=== PATIENT | male | born 1940 | race Two or more races ===

== ENCOUNTER 2020-12-02 15:47 | Inpatient (IN) | payer OTHER ==
[~2020-12-02] VITALS: Ht 180.3 cm; Wt 75.3 kg
[2020-12-02 16:26] LABS: Basophils # (auto) 0 10 ^3/uL (0-0.2); Basophils % (auto) 0.5 % (0.0-2.0); Eosinophils # (auto) 0 10 ^3/uL (0-0.8); Eosinophils % (auto) 0.5 % (0.0-7.0); Hemoglobin 9.5 g/dL (13.5-17.5); Lymphocytes # (auto) 0.8 10 ^3/uL (0.4-5.4); Mean Corpuscular Hemoglobin 22.3 pg (28.0-32.0); Monocytes # (auto) 0.3 10 ^3/uL (0-1.3); Nucleated Red Blood Cells % 0.1 %; Red Blood Cells 4.25 10^6/uL (4.5-5.90)
[2020-12-02 16:27] LABS: Hematocrit 30.3 % (41.0-53.0); Mean Corpuscular Hgb Conc. 31.3 g/dL (32.0-36.0); Mean Corpuscular Volume 71.1 fL (80.0-100.0); Monocytes % (auto) 7.8 % (0.0-12.0); Neutrophils # (auto) 2.3 10 ^3/uL (1.6-8.6); Neutrophils % (auto) 68.2 % (37.0-80.0); Red Cell Distribution Width 16.3 % (11.8-14.3); White Blood Cell 3.4 10^3/uL (4.4-10.8)
[2020-12-02 16:40] LABS: INR 1.04 (0.9-1.15); Partial Thromboplastin Time 26.8 sec (23.6-33.0)
[2020-12-02 16:48] LABS: Albumin 2.6 g/dL (3.4-5.0); Calcium 8.1 mg/dL (8.5-10.1); Potassium 3.9 mmol/L (3.5-5.1)
[2020-12-02 16:53] LABS: Bilirubin, Total 0.6 mg/dL (0.2-1.0); Total Protein 6.6 g/dL (6.4-8.2)
[2020-12-02] MEDS ORDERED: cefTRIAXone 1GM/50ML D5W 50 ML IV ONE ×2 (17:15→20:00)
[2020-12-02] MEDS ORDERED: LACTATED RINGER'S 1,000 ML IV ONE (18:15)
[2020-12-02] MEDS ORDERED: NITROGLYCERIN 0.4 MG SL TAB SL PRN ×2 (18:15→20:00)
[2020-12-02] MEDS ORDERED: DEXTROSE (50%) 50ML SYRG IV PRN (18:15)
[2020-12-02] MEDS ORDERED: hydrALAZINE HCL 20 MG/ML VL IV PRN (18:15)
[2020-12-02] MEDS ORDERED: FUROSEMIDE 100 MG/10ML VIAL IV ONE (18:15)
[2020-12-02] MEDS ORDERED: ISOSORBIDE MONONITRATE ER 60 MG TAB PO ONE ×2 (18:15→20:00)
[2020-12-02] MEDS ORDERED: MORPHINE SULFATE INJECTION 2 MG/ML SYRG IV PRN ×3 (18:15→20:00)
[2020-12-02] MEDS ORDERED: hydrALAZINE HCL 20 MG/ML VL IV ONE (18:30)
[2020-12-02] MEDS ORDERED: ALPR0.5T7 PO (18:46)
[2020-12-02] MEDS ORDERED: HYDR50TA15 PO (18:46)
[2020-12-02] MEDS ORDERED: REPA2TAB8 PO (18:46)
[2020-12-02] MEDS ORDERED: TEMA7.5C11 PO (18:46)
[2020-12-02] MEDS ORDERED: CHOL500023 PO (18:46)
[2020-12-02] MEDS ORDERED: METO-289 PO (18:46)
[2020-12-02] MEDS ORDERED: ALBUAER3 IN (18:46)
[2020-12-02] MEDS ORDERED: DOCUSATE SOD 100 MG CAP PO PRN (20:00)
[2020-12-02] MEDS ORDERED: IPRATROPIUM BROM 0.5 MG/2.5ML INH SOL NEB ONE (20:00)
[2020-12-02] MEDS ORDERED: METOPROLOL SUCCINATE XL 50 MG TAB PO ONE (20:00)
[2020-12-02] MEDS ORDERED: HYDROcodone-ACET 5/325MG TAB PO PRN (20:00)
[2020-12-02] MEDS ORDERED: LORazepam 0.5 MG TAB PO PRN (20:00)
[2020-12-02] MEDS ORDERED: ATORVASTATIN 20 MG TAB PO ONE (20:00)
[2020-12-02] MEDS ORDERED: AZITHROMYCIN 500MG/ 250ML 250 ML IV ONE (20:00)
[2020-12-02] MEDS ORDERED: METOCLOPRAMIDE HCL 5MG/ml INJ 2ml VIAL IV PRN ×2 (20:00→21:00)
[2020-12-02] MEDS ORDERED: ACETAMINOPHEN 325 MG TAB PO PRN (20:00)
[2020-12-02] MEDS ORDERED: ALUM & MAG HYDROX-SIMETH LIQ(MAALOX) 30 ML PO PRN (20:00)
[2020-12-02] MEDS ORDERED: LORazepam 2MG/ML-1ML VIAL IV ONE (20:15)
[2020-12-02] MEDS ORDERED: IPRATROPIUM BROM 0.5 MG/2.5ML INH SOL NEB SCH (20:20)
[2020-12-02] MEDS: SODIUM CHLOR 0.9% PF (SALINE LOCK) 10ML VIAL/SYR IV SCH (21:27)
[2020-12-02] MEDS ORDERED: TEMAZEPAM 15 MG CAP PO ONE (22:00)
[2020-12-02] MEDS ORDERED: ATORVASTATIN 20 MG TAB PO SCH (22:00)
[2020-12-03 00:03] VITALS: BP 97/53
[2020-12-03] MEDS ORDERED: InsuLIN REG 1unit/0.01ml Soln (100units/ml) ONE (00:17)
[2020-12-03] MEDS ORDERED: ACETAMINOPHEN 325 MG TAB PO PRN (00:30)
[2020-12-03] MEDS ORDERED: DEXTROSE (50%) 50ML SYRG IV PRN ×3 (00:30→06:15)
[2020-12-03] MEDS ORDERED: ALUM & MAG HYDROX-SIMETH LIQ(MAALOX) 30 ML PO PRN (00:30)
[2020-12-03] MEDS ORDERED: hydrALAZINE HCL 20 MG/ML VL IV PRN (01:45)
[2020-12-03] MEDS ORDERED: DOCUSATE SOD 100 MG CAP PO PRN (01:45)
[2020-12-03] MEDS ORDERED: MORPHINE SULFATE INJECTION 2 MG/ML SYRG IV PRN (01:45)
[2020-12-03] MEDS ORDERED: NITROGLYCERIN 0.4 MG SL TAB SL PRN (01:45)
[2020-12-03] MEDS ORDERED: IPRATROPIUM BROM 0.5 MG/2.5ML INH SOL ONE (02:20)
[2020-12-03] MEDS: InsuLIN REG 1unit/0.01ml Soln (100units/ml) SC SCH ×4 (05:52→18:39)
[2020-12-03] MEDS: IPRATROPIUM BROM 0.5 MG/2.5ML INH SOL NEB SCH ×5 (06:00→22:55)
[2020-12-03] MEDS ORDERED: ACCU-CHEK COMFORT CURVE STRIP VI SCH ×2 (06:00)
[2020-12-03] MEDS: SODIUM CHLOR 0.9% PF (SALINE LOCK) 10ML VIAL/SYR IV SCH ×3 (06:00→22:04)
[2020-12-03] MEDS ORDERED: FUROSEMIDE 40 MG/4 ML VIAL IV SCH (06:00)
[2020-12-03] MEDS: cefTRIAXone 1GM/50ML D5W 50 ML IV SCH (09:00)
[2020-12-03] MEDS: METOPROLOL SUCCINATE XL 50 MG TAB PO SCH (10:00)
[2020-12-03] MEDS: AZITHROMYCIN 500MG/ 250ML 250 ML IV SCH (10:00)
[2020-12-03] MEDS: ISOSORBIDE MONONITRATE ER 60 MG TAB PO SCH ×2 (10:31→17:56)
[2020-12-03] MEDS: ACCU-CHEK COMFORT CURVE STRIP VI SCH ×2 (12:27→17:35)
[2020-12-03] MEDS ORDERED: D5W 5% 1,000 ML IV SCH (12:30)
[2020-12-03] MEDS ORDERED: SODIUM CHL 0.9% 1000 ML BAG XX ONE (13:15)
[2020-12-03 13:43] LABS: BUN/Creatinine Ratio 8.4; Calcium 8.3 mg/dL (8.5-10.1); Potassium 3.8 mmol/L (3.5-5.1)
[2020-12-03 20:13] VITALS: BP 142/67
[2020-12-03] MEDS: ATORVASTATIN 20 MG TAB PO SCH (21:55)
[2020-12-03] MEDS: LORazepam 0.5 MG TAB PO PRN (21:55)
[2020-12-03 22:00] VITALS: BP 142/67
[2020-12-04] MEDS: ACCU-CHEK COMFORT CURVE STRIP VI SCH ×5 (00:34→23:49)
[2020-12-04] MEDS: InsuLIN REG 1unit/0.01ml Soln (100units/ml) SC SCH ×5 (00:38→23:50)
[2020-12-04] MEDS: IPRATROPIUM BROM 0.5 MG/2.5ML INH SOL NEB SCH ×5 (02:37→22:25)
[2020-12-04 05:00] VITALS: BP 153/67
[2020-12-04] MEDS: SODIUM CHLOR 0.9% PF (SALINE LOCK) 10ML VIAL/SYR IV SCH ×3 (05:14→21:00)
[2020-12-04 06:16] LABS: Basophils # (auto) 0 10 ^3/uL (0-0.2); Hematocrit 24.5 % (41.0-53.0); Hemoglobin 8.2 g/dL (13.5-17.5); Lymphocytes # (auto) 1.3 10 ^3/uL (0.4-5.4); Monocytes # (auto) 0.3 10 ^3/uL (0-1.3); Nucleated Red Blood Cells % 0.1 %; White Blood Cell 4.2 10^3/uL (4.4-10.8)
[2020-12-04 06:19] LABS: Basophils % (auto) 1.1 % (0.0-2.0); Eosinophils # (auto) 0.2 10 ^3/uL (0-0.8); Eosinophils % (auto) 5.8 % (0.0-7.0); Mean Corpuscular Hemoglobin 23.5 pg (28.0-32.0); Mean Corpuscular Hgb Conc. 33.3 g/dL (32.0-36.0); Mean Corpuscular Volume 70.6 fL (80.0-100.0); Monocytes % (auto) 8.3 % (0.0-12.0); Neutrophils # (auto) 2.2 10 ^3/uL (1.6-8.6); Neutrophils % (auto) 52.8 % (37.0-80.0); Red Blood Cells 3.48 10^6/uL (4.5-5.90); Red Cell Distribution Width 16.5 % (11.8-14.3)
[2020-12-04 06:32] LABS: Potassium 4.1 mmol/L (3.5-5.1)
[2020-12-04 06:46] LABS: Albumin 2.3 g/dL (3.4-5.0); BUN/Creatinine Ratio 7.7; Bilirubin, Total 0.4 mg/dL (0.2-1.0); Calcium 7.9 mg/dL (8.5-10.1); Total Protein 5.8 g/dL (6.4-8.2)
[2020-12-04 08:00] VITALS: BP 139/71
[2020-12-04] MEDS: AZITHROMYCIN 500MG/ 250ML 250 ML IV SCH (08:41)
[2020-12-04] MEDS: cefTRIAXone 1GM/50ML D5W 50 ML IV SCH (08:42)
[2020-12-04] MEDS: NIFEdipine ER 30 MG TAB PO SCH (08:44)
[2020-12-04] MEDS: ISOSORBIDE MONONITRATE ER 60 MG TAB PO SCH (09:40)
[2020-12-04] MEDS: METOPROLOL SUCCINATE XL 50 MG TAB PO SCH (09:40)
[2020-12-04 12:00] VITALS: BP 154/99
[2020-12-04 16:00] VITALS: BP 152/83
[2020-12-04] MEDS: LORazepam 0.5 MG TAB PO PRN (21:00)
[2020-12-04] MEDS: ATORVASTATIN 20 MG TAB PO SCH (21:01)
[2020-12-04 22:00] VITALS: BP 129/63
[2020-12-04] MEDS: ALBUTEROL SULF 2.5 MG/0.5ML(0.5%) NEB SOLN NEB SCH (22:25)
[2020-12-04] MEDS ORDERED: MORPHINE SULFATE INJECTION 2 MG/ML SYRG IV PRN (23:30)
[2020-12-05] MEDS: IPRATROPIUM BROM 0.5 MG/2.5ML INH SOL NEB SCH ×6 (02:00→22:15)
[2020-12-05] MEDS: ALBUTEROL SULF 2.5 MG/0.5ML(0.5%) NEB SOLN NEB SCH ×6 (02:00→22:15)
[2020-12-05] MEDS: LORazepam 0.5 MG TAB PO PRN ×3 (04:56→18:10)
[2020-12-05 05:00] VITALS: BP 127/51
[2020-12-05] MEDS: SODIUM CHLOR 0.9% PF (SALINE LOCK) 10ML VIAL/SYR IV SCH ×3 (05:00→22:19)
[2020-12-05] MEDS: ACCU-CHEK COMFORT CURVE STRIP VI SCH ×3 (05:00→18:00)
[2020-12-05] MEDS: InsuLIN REG 1unit/0.01ml Soln (100units/ml) SC SCH ×3 (05:03→18:00)
[2020-12-05 09:00] VITALS: BP 154/77
[2020-12-05] MEDS: cefTRIAXone 1GM/50ML D5W 50 ML IV SCH (09:33)
[2020-12-05] MEDS: NIFEdipine ER 30 MG TAB PO SCH (09:34)
[2020-12-05] MEDS: METOPROLOL SUCCINATE XL 50 MG TAB PO SCH (09:35)
[2020-12-05] MEDS: ISOSORBIDE MONONITRATE ER 60 MG TAB PO SCH (09:35)
[2020-12-05] MEDS: AZITHROMYCIN 500MG/ 250ML 250 ML IV SCH (10:25)
[2020-12-05 13:00] VITALS: BP 172/92
[2020-12-05 13:59] LABS: Hepatitis A Ab IgM Negative; Hepatitis B Core IgM Negative; Hepatitis B Surface Antigen Negative (Negative); Hepatitis C Antibody Negative (Negative)
[2020-12-05 17:00] VITALS: BP 149/81
[2020-12-05] MEDS ORDERED: EPOETIN ALFA-EPBX 10,000 UNIT/1ML VIAL SC ONE (21:30)
[2020-12-05 22:00] VITALS: BP 124/49
[2020-12-05] MEDS: ATORVASTATIN 20 MG TAB PO SCH (22:19)
[2020-12-06] MEDS: ACCU-CHEK COMFORT CURVE STRIP VI SCH ×3 (00:05→12:01)
[2020-12-06] MEDS: InsuLIN REG 1unit/0.01ml Soln (100units/ml) SC SCH ×3 (00:07→12:02)
[2020-12-06] MEDS: ALBUTEROL SULF 2.5 MG/0.5ML(0.5%) NEB SOLN NEB SCH ×4 (02:31→13:09)
[2020-12-06] MEDS: IPRATROPIUM BROM 0.5 MG/2.5ML INH SOL NEB SCH ×4 (02:31→13:09)
[2020-12-06 02:54] VITALS: BP 124/49
[2020-12-06 05:00] VITALS: BP 135/57
[2020-12-06] MEDS: SODIUM CHLOR 0.9% PF (SALINE LOCK) 10ML VIAL/SYR IV SCH ×2 (05:37→14:00)
[2020-12-06 06:04] LABS: Basophils # (auto) 0 10 ^3/uL (0-0.2); Basophils % (auto) 1.1 % (0.0-2.0); Eosinophils # (auto) 0.1 10 ^3/uL (0-0.8); Neutrophils # (auto) 2.9 10 ^3/uL (1.6-8.6); Nucleated Red Blood Cells % 0.1 %; White Blood Cell 4.5 10^3/uL (4.4-10.8)
[2020-12-06 06:07] LABS: Eosinophils % (auto) 2.8 % (0.0-7.0); Hematocrit 26.7 % (41.0-53.0); Hemoglobin 8.7 g/dL (13.5-17.5); Lymphocytes % (auto) 23.2 % (10.0-50.0); Mean Corpuscular Hemoglobin 23.2 pg (28.0-32.0); Mean Corpuscular Hgb Conc. 32.6 g/dL (32.0-36.0); Mean Corpuscular Volume 71.1 fL (80.0-100.0); Monocytes # (auto) 0.4 10 ^3/uL (0-1.3); Monocytes % (auto) 9.4 % (0.0-12.0); Neutrophils % (auto) 63.5 % (37.0-80.0); Red Blood Cells 3.76 10^6/uL (4.5-5.90); Red Cell Distribution Width 16.3 % (11.8-14.3)
[2020-12-06 06:19] LABS: Potassium 3.5 mmol/L (3.5-5.1)
[2020-12-06 06:25] LABS: Albumin 2.4 g/dL (3.4-5.0); BUN/Creatinine Ratio 8.2; Bilirubin, Total 0.6 mg/dL (0.2-1.0); Calcium 8.1 mg/dL (8.5-10.1); Total Protein 6.3 g/dL (6.4-8.2)
[2020-12-06] MEDS ORDERED: SODIUM CHL 0.9% 1000 ML BAG XX ONE (07:00)
[2020-12-06] MEDS: cefTRIAXone 1GM/50ML D5W 50 ML IV SCH (08:36)
[2020-12-06 09:00] VITALS: BP 138/59
[2020-12-06] MEDS: AZITHROMYCIN 500MG/ 250ML 250 ML IV SCH (09:50)
[2020-12-06] MEDS: NIFEdipine ER 30 MG TAB PO SCH (09:54)
[2020-12-06] MEDS: METOPROLOL SUCCINATE XL 50 MG TAB PO SCH (09:54)
[2020-12-06] MEDS: ISOSORBIDE MONONITRATE ER 60 MG TAB PO SCH (09:54)
[2020-12-06 12:00] VITALS: BP 138/59
[2020-12-06 13:00] VITALS: BP 107/59
[2020-12-06 17:00] VITALS: BP 164/70
[2020-12-06] MEDS ORDERED: EPOETIN ALFA-EPBX 10,000 UNIT/1ML VIAL SC ONE (21:00)
== END 2020-12-06 18:58 | disposition home or self-care (01) | DRG 280 ==
LOC: ER 15:48 → TELE 17:12 → UNDOADMIN 17:12 → TELE 18:08 → TELE-WESTW 12-03 20:13
PROVIDERS: ADMIT Hospitalist; ATTEND Family Medicine
PROC: 5A1D70Z Performance of Urinary Filtration, Intermittent, Less than 6 Hours Per Day (ICD-10-PCS; principal; 2020-12-03)
PROC: 05H933Z Insertion of Infusion Device into Right Brachial Vein, Percutaneous Approach (ICD-10-PCS; 2020-12-03)
PROC: B54MZZA Ultrasonography of Right Upper Extremity Veins, Guidance (ICD-10-PCS; 2020-12-03)
PROC: 5A1D70Z Performance of Urinary Filtration, Intermittent, Less than 6 Hours Per Day (ICD-10-PCS; 2020-12-05)
DX: I13.2 Hypertensive heart and chronic kidney disease with heart failure and with stage 5 chronic kidney disease, or end stage renal disease (principal); J18.9 Pneumonia, unspecified organism; I21.4 Non-ST elevation (NSTEMI) myocardial infarction; N18.6 End stage renal disease; J96.01 Acute respiratory failure with hypoxia; I50.33 Acute on chronic diastolic (congestive) heart failure; E44.0 Moderate protein-calorie malnutrition; J44.0 Chronic obstructive pulmonary disease with (acute) lower respiratory infection; E11.649 Type 2 diabetes mellitus with hypoglycemia without coma; D69.6 Thrombocytopenia, unspecified; D63.8 Anemia in other chronic diseases classified elsewhere; E11.65 Type 2 diabetes mellitus with hyperglycemia; I16.0 Hypertensive urgency; E11.22 Type 2 diabetes mellitus with diabetic chronic kidney disease; E78.00 Pure hypercholesterolemia, unspecified; D63.1 Anemia in chronic kidney disease; E78.5 Hyperlipidemia, unspecified; I35.0 Nonrheumatic aortic (valve) stenosis; Z20.822 Contact with and (suspected) exposure to COVID-19; Z79.84 Long term (current) use of oral hypoglycemic drugs; Z82.49 Family history of ischemic heart disease and other diseases of the circulatory system; Z99.2 Dependence on renal dialysis; Z68.22 Body mass index [BMI] 22.0-22.9, adult; Z82.5 Family history of asthma and other chronic lower respiratory diseases; Z95.2 Presence of prosthetic heart valve
CPT/HCPCS: 36415; 36600; 71045; 78582; 80048; 80053; 80074; 82805; 82962; 83036; 83880; 84484; 85025; 85379; 85610; 85730; 87040; 87426; 90935; 93005; 93306; 93970; 94640; 96365; 96366; 96367; 96368; 96375; 96376; G0378; J0696; J1642; J1815